=== PATIENT | male | born 1935 | race Caucasian/White ===

== ENCOUNTER → 2017-02-01 | Outpatient (CLI) | payer MEDICARE, OTHER | END | disposition home or self-care (01) | LOC: RAD.S 08:44 | DX: R13.10 Dysphagia, unspecified (principal); K44.9 Diaphragmatic hernia without obstruction or gangrene ==

== ENCOUNTER 2017-04-19 08:06 | Day surgery (SDC) | payer MEDICARE, OTHER ==
[~2017-04-19] VITALS: Ht 175.3 cm; Wt 72.6 kg
--- NOTE | 2017-05-18 11:41 | OR ---
ADMIT: 04/19/2017 RM/LOC: [facility] MR#: [id number] [id number] ZECHARIAH MATA [address] [place] [address] Operative/Delivery Room Report SEX: M AGE: 81 : 1935 SURGERY DATE: 04/19/2017 SURGEON: Gabino Buenrostro MD PRE-PROCEDURE DIAGNOSIS: History of polyps. POSTPROCEDURE DIAGNOSES: 1. Small 2 mm hepatic flexure polyp. 2. Mild sigmoid diverticular disease. PROCEDURE: Cervical polypectomy. INDICATIONS: The patient is an 81-year-old, history of polyps who presents for repeat colonoscopy surveillance. FINDINGS: The patient was taken to the endoscopy suite. IV sedation was given, placed in left lateral decubitus position. Colonoscope introduced per rectum and advanced to cecum. On careful colonoscopic examination with a good bowel prep, there was a very small 2 mm polyp at the hepatic flexure removed with a bite of the cold biopsy forceps. There were no further masses or polyps. There was very mild focal sigmoid diverticular disease. The rectal mucosa was normal. The colonoscope was removed. The patient tolerated the procedure without difficulty, transferred to the recovery room in good condition. Gabino Buenrostro MD/ zoraida JOB #: [id number] CC: Gabino Buenrostro, Attending Physician Stephon Blackburn ([facility]), Family Physician
== END 2017-04-19 13:18 | disposition home or self-care (01) ==
LOC: SSS 08:06
PROC: 0DBL8ZX Excision of Transverse Colon, Via Natural or Artificial Opening Endoscopic, Diagnostic (ICD-10-PCS; principal; 2017-04-19)
DX: Z12.11 Encounter for screening for malignant neoplasm of colon (principal); D12.3 Benign neoplasm of transverse colon; K57.30 Diverticulosis of large intestine without perforation or abscess without bleeding; I10 Essential (primary) hypertension; G47.30 Sleep apnea, unspecified; Z98.49 Cataract extraction status, unspecified eye; Z98.890 Other specified postprocedural states